=== PATIENT | female | born 1980 | race Caucasian/White ===

== ENCOUNTER 2017-02-12 13:38 | Emergency (ER) | payer SELFPAY ==
[~2017-02-12] VITALS: Ht 160 cm; Wt 86.2 kg
--- NOTE | 2017-02-12 13:45 | NUR ---
PT C/O HEADACHE AND BODY ACHES X 2 WEEKS. GOWNED PT NESSA SPARKS ORDER
[2017-02-12 14:52] LABS: BASOPHILS % (AUTO) 0.4 % (0.0-2.0); EOSINOPHILS # (AUTO) 0.1 /CMM (0.0-0.7); EOSINOPHILS % (AUTO) 1.2 % (0.0-6.0); HEMATOCRIT 42 % (33-45); HEMOGLOBIN 13.9 g/dL (11.5-14.8); LYMPHOCYTES # (AUTO) 2.7 /CMM (0.8-4.8); LYMPHOCYTES % (AUTO) 26.2 % (20.0-44.0); MEAN CORPUSCULAR HEMOGLOBIN 27 PG (26.0-33.0); MEAN CORPUSCULAR HGB CONC 33 g/dl (31.0-36.0); MEAN CORPUSCULAR VOLUME 81 fL (82-100); MONOCYTES # (AUTO) 0.9 /CMM (0.1-1.30); MONOCYTES % (AUTO) 8.3 % (2.0-12.0); NEUTROPHILS # (AUTO) 6.7 /CMM (1.8-8.9); NEUTROPHILS % (AUTO) 63.9 % (43.0-81.0); PLATELET COUNT (AUTO) 299 /CMM (150-450); RDW COEFFICIENT OF VARIATION 12.5 (11.5-15.0); RED BLOOD CELL COUNT(AUTO) 5.12 MIL/uL (4.0-5.2); WHITE BLOOD COUNT (AUTO) 10.4 K/uL (4.3-11.0)
[2017-02-12] MEDS ORDERED: diphenhydrAMINE HCL 50 MG/ML VIAL ONE (14:55)
[2017-02-12] MEDS ORDERED: KETOROLAC TROMETHAMINE INJ 30 MG/ML VIAL ONE (14:55)
[2017-02-12] MEDS ORDERED: PROCHLORPERAZINE EDISYLATE 10 MG/2 ML VIAL ONE (14:55)
[2017-02-12] MEDS ORDERED: IV SET PRIMARY PUMP SET 1 EA INFUS.SET MC ONE (14:56)
[2017-02-12] MEDS ORDERED: IV NS 0.9% 1,000 ML ONE (14:56)
[2017-02-12 15:00] LABS: CALCIUM, SERUM 8.8 mg/dL (8.5-10.1); CREATININE 0.9 mg/dL (0.6-1.3); POTASSIUM 3.9 mmol/L (3.5-5.1)
[2017-02-12] MEDS ORDERED: IV NS 0.9% 1,000 ML BAG IV ONE (15:00)
[2017-02-12] MEDS ORDERED: PROCHLORPERAZINE EDISYLATE 10 MG/2 ML VIAL IV ONE (15:00)
[2017-02-12] MEDS ORDERED: KETOROLAC TROMETHAMINE INJ 30 MG/ML VIAL IV ONE (15:00)
[2017-02-12] MEDS ORDERED: diphenhydrAMINE HCL 50 MG/ML VIAL IV ONE (15:00)
[2017-02-12 15:06] LABS: ALBUMIN 3.7 g/dL (3.4-5.0); BILIRUBIN,DIRECT 0.1 mg/dL (0.0-0.2); BILIRUBIN,TOTAL 0.3 mg/dL (0.2-1.0); TOTAL PROTEIN, SERUM 7.6 g/dL (6.4-8.2)
[2017-02-12 15:07] LABS: APPEARANCE,URINE Clear (CLEAR); BILIRUBIN,URINE Negative (NEGATIVE); BLOOD, URINE Trace-intact Ery/uL (NEGATIVE); COLOR,URINE Yellow (YELLOW); KETONES,URINE Negative (NEGATIVE); LEUKOCYTE ESTERASE ,URINE Negative (NEGATIVE); NITRITE, URINE Negative (NEGATIVE); PROTEIN,URINE Negative (NEGATIVE); UGLUCOSE Negative (NEGATIVE); UROBILINOGEN,URINE 0.2 EU/dL (0.2)
[2017-02-12 15:11] LABS: BACTERIA,URINE Rare /HPF (None Seen); RBC,URINE 0-3 /HPF (0-2); SQUAMOUS EPITHELIAL CELL,UR Few /HPF (None Seen); WBC,URINE 0-3 /HPF (0-3)
--- NOTE | 2017-02-12 16:55 | NUR ---
IV removed. Catheter intact and site benign. Pressure and 4x4 applied to site. No bleeding noted.
--- NOTE | 2017-02-12 16:56 | NUR ---
Patient discharged to home in stable condition. Written and verbal after care instructions given. Patient verbalizes understanding of instruction.
[2017-02-12 16:57] VITALS: BP 125/75
== END 2017-02-12 16:58 | disposition home or self-care (01) ==
LOC: ER 13:39
DX: R51 Headache (principal); G89.29 Other chronic pain; M79.1 Myalgia
CPT/HCPCS: 36415; 70450; 80048; 80076; 81001; 84703; 85025; 93005; 96361; 96374; 96375; 99285; A4606; J0780; J1200; J1885; J7030; Z7610; 81000-TC

== ENCOUNTER 2022-01-27 12:19 | Emergency (ER) | payer MEDICAID ==
[~2022-01-27] VITALS: Ht 160 cm; Wt 84.4 kg
--- NOTE | 2022-01-27 12:30 | NUR ---
BIB SELF C/O RECTAL PAIN ON AND OFF FOR 2 WEEKS. I HAD A BIG BOWEL EPISODE. AFTER THAT PAIN STARTED ON MY RECTAL AREA. PLACED COMFORTABLY IN BED. VITALS CHECKED.
--- NOTE | 2022-01-27 12:32 | NUR ---
DR NEGRON AT BEDSIDE
[2022-01-27] MEDS: LIDOCAINE 1%-EPI 1:100,000 20 ML VIAL TP ONE (13:03)
[2022-01-27 14:43] LABS: CALCIUM, SERUM 8.5 mg/dL (8.5-10.1); CREATININE 0.8 mg/dL (0.6-1.3); POTASSIUM 3.8 mmol/L (3.5-5.1)
[2022-01-27 15:03] LABS: BASOPHILS % (AUTO) 0.4 % (0.0-2.0); EOSINOPHILS % (AUTO) 1.7 % (0.0-6.0); HEMATOCRIT 42 % (33-45); LYMPHOCYTES # (AUTO) 2.5 K/uL (0.8-4.8); LYMPHOCYTES % (AUTO) 33.1 % (20.0-44.0); MEAN CORPUSCULAR HGB CONC 33 g/dl (31.0-36.0); MEAN CORPUSCULAR VOLUME 84 fL (82-100); MONOCYTES # (AUTO) 0.7 K/uL (0.1-1.30); MONOCYTES % (AUTO) 8.8 % (2.0-12.0); NEUTROPHILS # (AUTO) 4.2 K/uL (1.8-8.9); PLATELET COUNT (AUTO) 272 K/uL (150-450); RED BLOOD CELL COUNT(AUTO) 5.06 MIL/uL (4.0-5.2); WHITE BLOOD COUNT (AUTO) 7.5 K/uL (4.3-11.0)
[2022-01-27] MEDS ORDERED: DOCU100C36 PO (16:28)
[2022-01-27] MEDS ORDERED: HYDR30CR79 TP (16:28)
[2022-01-27 16:44] VITALS: BP 107/62
--- NOTE | 2022-01-27 16:44 | NUR ---
Patient discharged to home in stable condition. Written and verbal after care instructions given. Patient verbalizes understanding of instruction.
== END 2022-01-27 16:45 | disposition home or self-care (01) ==
LOC: ER 12:25
DX: K64.8 Other hemorrhoids (principal); K62.89 Other specified diseases of anus and rectum; Z79.899 Other long term (current) drug therapy
CPT/HCPCS: 36415; 80048-TC; 85025-TC; 85730-TC

== ENCOUNTER 2023-01-21 19:56 | Emergency (ER) | payer MEDICAID ==
[~2023-01-21] VITALS: Ht 160 cm; Wt 85.3 kg
[~2023-01-21 19:56] MED LIST: DOCU100C36 PO; HYDR30CR79 TP
[2023-01-21 20:07] VITALS: BP 115/58
--- NOTE | 2023-01-21 20:07 | NUR ---
Bibdaughter from home c/o vaginal pain, possible bartholin cyst. Pt in gown.
--- NOTE | 2023-01-21 20:23 | NUR ---
DR DELGADO EXAMENED PT WITH FEMALE RN EMERGENCY MEDICAL TECHNICIAN BASIC
[2023-01-21] MEDS ORDERED: SULF1TAB48 PO (20:35)
[2023-01-21] MEDS ORDERED: CEPH500C2 PO (20:35)
--- NOTE | 2023-01-21 20:42 | NUR ---
Patient discharged to home in stable condition. Written and verbal after care instructions given. Patient verbalizes understanding of instruction.
== END 2023-01-21 20:43 | disposition home or self-care (01) ==
LOC: ER 19:58
DX: L03.317 Cellulitis of buttock (principal); Z98.890 Other specified postprocedural states; Z79.899 Other long term (current) drug therapy